=== PATIENT | male | born 1980 | race Hispanic/Latino ===

== ENCOUNTER 2017-02-27 12:43 | Emergency (ER) | payer SELFPAY ==
--- NOTE | 2017-02-27 14:00 | Emergency Department Report ---
Chief Complaint: Dizziness Stated Complaint: DIZZY/LIGHTHEAD/TINGLES Time Seen by Provider: 02/27/17 13:56 - HPI History of Present Illness: Patient with H/O HTN and seizure disorder presents to ED with c/o dizziness, tingling and SOB since yesterday; denies CP, N/V, cough and fevers; admits his doctor changed his seizure meds 2 days ago, doubled his lamictal and stopped his klonopin; denies illicit drug or alcohol use - ROS Review of Systems: Negative except for those stated in HPI - Exam Vital Signs: Vital Signs 02/27/17 12:54 Temperature 98.1 F Pulse Rate 89 Respiratory 16 Rate Blood Pressure 156/95 O2 Sat by Pulse 98 Oximetry Physical Exam: NAD RRR CTAB MSE screening note: Focused history and physical exam performed. Due to findings the following was ordered: EKG, CXR, labs Patient to be seen by provider in Main ED ED Disposition for MSE Condition: Stable
[2017-02-27 14:17] LABS: Hematocrit 44.5 % (35.5-45.6); Hemoglobin 15.5 gm/dl (11.8-15.2); Mean Corpuscular HGB Conc 35 % (32-34); Mean Corpuscular Hemoglobin 31 pg (28-32); Mean Corpuscular Volume 89 fl (84-94); Platelet Count 200 K/mm3 (140-440); White Blood Count 8.7 K/mm3 (4.5-11.0)
[2017-02-27 14:35] LABS: Alanine Aminotransferase 22 units/L (7-56); Albumin 4.6 g/dL (3.9-5); Albumin/Globulin Ratio 1.8 %; Alkaline Phosphatase 85 units/L (35-129); Anion Gap 16 mmol/L; BUN/Creatinine Ratio 17; Blood Urea Nitrogen 10 mg/dL (9-20); Calcium 9.4 mg/dL (8.4-10.2); Carbon Dioxide 24 mmol/L (22-30); Glucose 104 mg/dL (75-100); Sodium 141 mmol/L (137-145); Total Protein 7.2 g/dL (6.3-8.2)
--- NOTE | 2017-02-27 14:37 | XRay Report ---
ROUTINE CHEST, TWO VIEWS: HISTORY: Short of breath. The trachea, heart, mediastinal contour, lung roca and bony thorax are unremarkable. IMPRESSION: Unremarkable chest x-ray.
--- NOTE | 2017-02-27 17:15 | Cat Scan Report ---
FINAL REPORT EXAM: CT HEAD/BRAIN WO CON HISTORY: seizure TECHNIQUE: Standard unenhanced CT of the head at 5.0 millimeter axial increments. PRIORS: None. FINDINGS: The ventricular system is normal in size and configuration. There is no evidence for parenchymal volume loss. There is no evidence for mass lesion, mass effect, midline shift, acute intracranial hemorrhage, or acute ischemia/ infarction. No evidence for acute skull fracture is seen. No abnormality in the overlying scalp soft tissues is seen. Visualized paranasal sinuses are clear. IMPRESSION: Negative CT of the head. No acute intracranial process noted.
--- NOTE | 2017-02-27 17:53 | Emergency Department Report ---
ED Seizure HPI - General Chief Complaint: Dizziness Stated Complaint: DIZZY/LIGHTHEAD/TINGLES Time Seen by Provider: 02/27/17 13:56 Source: patient Mode of arrival: Ambulatory Limitations: No Limitations - History of Present Illness Initial Comments: Patient with history of seizure and has been on lamictal and clonazepam 1 mg bid for the last 6 years. Last the doctor increased the lamictal and stopped the klonopin suddenly. His symtoms last night and today were mild per patient but did feel like it was a seizure. -: Sudden Description of Episode: other (parasthesia with tingling arms, dizziness and vision change.) -: minutes(s) (30) Witnessed:: Yes Trauma: No Seizure History: known seizure disorder Place: home Possible Precipitating Event: medication Associated Symptoms: confusion, weakness Treatments Prior to Arrival: none - Related Data Previous Rx's Medication Instructions Recorded Last Taken Type clonazePAM [Klonopin] 1 mg PO BID #20 tablet 02/27/17 Unknown Rx Allergies Allergy/AdvReac Type Severity Reaction Status Date / Time No Known Allergies Allergy Verified 02/27/17 12:58 ED Review of Systems ROS: Stated complaint: DIZZY/LIGHTHEAD/TINGLES Other details as noted in HPI Constitutional: weakness. denies: chills, fever Eyes: denies: eye pain, eye discharge, vision change ENT: denies: ear pain, throat pain Respiratory: denies: cough, shortness of breath, wheezing Cardiovascular: denies: chest pain, palpitations Endocrine: no symptoms reported Gastrointestinal: denies: abdominal pain, nausea, diarrhea Genitourinary: denies: urgency, dysuria Musculoskeletal: denies: back pain, joint swelling, arthralgia Skin: denies: rash, lesions Neurological: weakness, numbness, paresthesias, confusion. denies: headache Psychiatric: denies: anxiety, depression Hematological/Lymphatic: denies: easy bleeding, easy bruising ED Past Medical Hx - Past Medical History Previous Medical History?: Yes Hx Hypertension: Yes Additional medical history: cholesterol - Surgical History Past Surgical History?: No - Social History Smoking Status: Current Every Day Smoker Substance Use Type: None - Medications Home Medications: Home Medications Medication Instructions Recorded Confirmed Last Taken Type clonazePAM [Klonopin] 1 mg PO BID #20 tablet 02/27/17 Unknown Rx ED Physical Exam - General Limitations: No Limitations General appearance: alert, in no apparent distress - Head Head exam: Present: atraumatic, normocephalic - Eye Eye exam: Present: normal appearance - ENT ENT exam: Present: mucous membranes moist - Neck Neck exam: Present: normal inspection - Respiratory Respiratory exam: Present: normal lung sounds bilaterally. Absent: respiratory distress - Cardiovascular Cardiovascular Exam: Present: regular rate, normal rhythm. Absent: systolic murmur, diastolic murmur, rubs, gallop - GI/Abdominal GI/Abdominal exam: Present: soft, normal bowel sounds - Rectal Rectal exam: Present: deferred - Extremities Exam Extremities exam: Present: normal inspection - Back Exam Back exam: Present: normal inspection - Neurological Exam Neurological exam: Present: alert, oriented X3 - Psychiatric Psychiatric exam: Present: normal affect, normal mood - Skin Skin exam: Present: warm, dry, intact, normal color. Absent: rash ED Course Vital Signs 02/27/17 12:54 Temperature 98.1 F Pulse Rate 89 Respiratory 16 Rate Blood Pressure 156/95 O2 Sat by Pulse 98 Oximetry ED Medical Decision Making - Lab Data Result diagrams: 02/27/17 14:02 02/27/17 14:02 unremarkable - EKG Data EKG shows normal: sinus rhythm, axis, intervals, QRS complexes, ST-T waves Rate: normal - EKG Data Interpretation: normal EKG - Radiology Data Radiology results: report reviewed Normal CXR and Head CT. No acute findings. - Medical Decision Making Patient with medication change and came off benzos after 6 years of bid use. It does not sound certain that he had a seizure but does have normal CT head. Likely benzo withdrawal should be weaned off. Will write clonazepam 1 mg bid now and have him follow up with PCP for wean. He will be seen neurologist soon now that he is back from [place]. Critical care attestation.: If time is entered above; I have spent that time in minutes in the direct care of this critically ill patient, excluding procedure time. ED Disposition Clinical Impression: Seizure disorder Medication withdrawal Qualifiers: Substance type: sedative, hypnotic or anxiolytic Qualified Code(s): F13.239 - Sedative, hypnotic or anxiolytic dependence with withdrawal, unspecified Disposition: DC-01 TO HOME OR SELFCARE Is pt being admited?: No Does the pt Need Aspirin: No Condition: Good Instructions: Benzodiazepine Abuse (ED), Recurrent Seizures Adult (ED) Prescriptions: clonazePAM [Klonopin] 1 mg PO BID #20 tablet Referrals: shima Pritchard [Other] - 3-5 Days Time of Disposition: 18:21
[2017-02-27 19:32] VITALS: BP 142/81
== END 2017-02-27 19:32 | disposition home or self-care (01) ==
LOC: ED 12:43
DX: G40.909 Epilepsy, unspecified, not intractable, without status epilepticus (principal); F13.239 Sedative, hypnotic or anxiolytic dependence with withdrawal, unspecified; I10 Essential (primary) hypertension; F17.200 Nicotine dependence, unspecified, uncomplicated
CPT/HCPCS: 36415; 70450; 71020; 80053; 85027; 93005; 93010; 99284